=== PATIENT | female | born 2000 | race Two or more races ===

== ENCOUNTER 2020-11-18 19:29 | Emergency (ER) | payer OTHER ==
[~2020-11-18] VITALS: Ht 175.3 cm; Wt 105.4 kg
--- NOTE | 2020-11-18 19:31 | NUR ---
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
--- NOTE | 2020-11-18 19:46 | NUR ---
pt presents to ed after testing positive for syphilis. pt was sent by OB to be checked out since she is 26 weeks . OB nurse in the room testing FHT. pt in gown, resting on gurney, and placed on continuous monitoring.
--- NOTE | 2020-11-18 20:00 | NUR ---
pt resting comfortably on gurney, denies needs at this time.
--- NOTE | 2020-11-18 20:39 | NUR ---
Pt reports +FM, denies UCs, LOF, or VB. FHTs in 150s.
[2020-11-18 21:00] VITALS: BP 122/62
[2020-11-18] MEDS ORDERED: BICILLIN-LA 2,400,000 UNITS/4 ML IM ONE (21:30)
--- NOTE | 2020-11-18 21:35 | NUR ---
antibiotics given, pt resting in room, denies needs at this time.
--- NOTE | 2020-11-18 22:40 | NUR ---
Patient given discharge instructions and they have confirmed that they understand the instructions. Patient ambulatory with steady gait.
[2021-02-11] MEDS ORDERED: FERR325T5 PO (17:28)
[2021-02-11] MEDS ORDERED: IBUP-1222 PO (17:28)
== END 2020-11-18 22:42 | disposition home or self-care (01) ==
LOC: ED 22:40
DX: O98.112 Syphilis complicating pregnancy, second trimester (principal); A53.9 Syphilis, unspecified; Z3A.26 26 weeks gestation of pregnancy
CPT/HCPCS: 96372; 99283; J0561

== ENCOUNTER → 2020-12-27 | Outpatient (CLI) | payer OTHER | END | disposition home or self-care (01) | LOC: RAD 15:55 | PROVIDERS: ATTEND Obstetrics & Gynecology | DX: K80.20 Calculus of gallbladder without cholecystitis without obstruction (principal) | CPT/HCPCS: 76705 ==

== ENCOUNTER 2021-01-26 17:28 | Outpatient (CLI) | payer OTHER ==
[~2021-01-26] VITALS: Ht 175.3 cm; Wt 111.3 kg
[2021-02-11] MEDS ORDERED: IBUP-1222 PO (17:28)
[2021-02-11] MEDS ORDERED: FERR325T5 PO (17:28)
== END 2021-01-26 19:03 | disposition home or self-care (01) ==
LOC: LAB 17:28 → LDOP 19:03
PROVIDERS: ATTEND Obstetrics & Gynecology
DX: O36.8130 Decreased fetal movements, third trimester, not applicable or unspecified (principal); Z3A.36 36 weeks gestation of pregnancy
CPT/HCPCS: 59025; 76819